=== PATIENT | female | born 1935 | race Caucasian/White ===

== ENCOUNTER 2016-07-19 12:36 | Inpatient (IN) | payer MEDICARE ==
--- NOTE | 2016-07-08 21:57 | HP ---
PREOPERATIVE HISTORY AND PHYSICAL: DATE OF OFFICE VISIT: 07/08/16 DATE OF SURGERY: 07/19/16 ATTENDING SURGEON: Stefany Bui MD PROCEDURE: Right total hip replacement. CHIEF COMPLAINT: Right hip pain. HISTORY OF PRESENT ILLNESS: Ms. Cotter is a 80-year-old female who presents in clinic with continued right hip pain. She has failed conservative measures and therefore has elected to undergo a right total hip replacement with Dr. Bui on 07/19/16. PAST MEDICAL HISTORY: High cholesterol, hypothyroidism, sleep apnea, hypertension, osteoarthritis in multiple joints, and GERD. PAST SURGICAL HISTORY: 1. Uterine suspension. 2. Left total hip replacement. MEDICATIONS: 1. Amoxicillin 500 mg 4 tabs 1 hour before dental work, invasive GI or procedures. 2. Omeprazole 20 mg 1 by mouth daily. 3. Levothyroxine sodium 88 mcg 1 by mouth every day. 4. Lisinopril 20 mg 1 by mouth daily. 5. Amlodipine besylate 5 mg 1 by mouth daily. 5. Vitamin D 1 by mouth daily. 6. Multivitamin 1 by mouth daily. 7. Aleve 500 mg as needed for pain. ALLERGIES: No known drug allergies. FAMILY HISTORY: Positive for heart disease and cancer. SOCIAL HISTORY: The patient lives with her . She is a former smoker and quit 50 years ago. She reports occasional alcohol use. She denies illegal drug use. REVIEW OF SYSTEMS: General: Negative for fever, chills, or night sweats. No known anesthesia problems. HEENT: Negative for headache, lightheadedness, or syncopal episodes. Integumentary: Negative for abrasions, lesions, or open wounds. Cardiothoracic: Positive for swelling in the left ankle. Negative for chest pain, palpitations, or edema. Positive for hypertension. Pulmonary: Negative for shortness of breath with exertion, chronic cough, or COPD. GI: Negative for nausea, vomiting, diarrhea, or constipation. Positive for GERD. : Negative for nocturia, urinary frequency, urinary urgency, history of UTIs, or kidney problems. Musculoskeletal: Positive for the current complaint. Neuro: Negative for paresthesias. Positive for numbness of the left hand due to carpal tunnel. Negative for history of seizure, stroke, or epilepsy. Endocrine: Negative for diabetes. Positive for hypothyroidism. Hematology: Positive for easy bruising. Negative for anemia, excessive bleeding, or history of DVT. Infectious Disease: Negative for MRSA, hep C, or HIV. PHYSICAL EXAMINATION GENERAL: A well-developed and well-nourished female, in no acute distress. VITAL SIGNS: Height 62, weight 169, pulse 82, blood pressure 157/93, BMI 30.9. HEENT: Normocephalic and atraumatic. PERRLA. Throat: Clear. NECK: Supple. PULMONARY: Lungs clear to auscultation bilaterally. No wheezing, rhonchi, or rales. CARDIOVASCULAR: Regular rate and rhythm. S1 and S2. No murmurs, gallops, and rubs. No edema. ABDOMEN: Positive bowel sounds, soft, nontender. MUSCULOSKELETAL: Right lower extremity, skin is intact. Pain with range of motion of the hip, 90 degrees of flexion. Pain in the groin, 0 degrees of internal rotation and 30 degrees of external rotation. No calf tenderness or swelling. +2 dorsalis pedis pulses. Sensation is intact to light touch distally. NEURO: Alert and oriented x3. Cranial nerves grossly intact. Sensation intact to light touch distally. DIAGNOSTIC STUDIES/LAB DATA: Multiple views of the right hip showed advanced arthritic disease in the right hip joint. IMPRESSION: Severe right hip osteoarthritis. PLAN: The patient is scheduled to undergo a right total hip replacement with Dr. Bui on 07/19/16. She will return to clinic in 10 to 14 days postop for followup and suture removal. A prescription for Percocet was e-prescribed to the patient's pharmacy for postoperative pain management. A prescription for Colace was sent for constipation and a script for Coumadin was sent for DVT prophylaxis. The patient has been cleared by her primary care physician. SHIMON LEMOS [id number]/[facility] #: [id number] [facility] CENTERIlene
[~2016-07-19 12:36] MED LIST: Buffered Lidocaine 1% SYR 3ML* 3 ML/SYR SYRINGE INTRADERM ONE; Famotidine TAB* 20 MG PO ONE; Gabapentin CAP(*) 300 MG PO ONE; Metoclopramide TAB* 10 MG PO ONE; celeCOXIB CAP* 200 MG PO ONE
[2016-07-19] MEDS ORDERED: celeCOXIB CAP* 100 MG ONE (13:03)
[2016-07-19] MEDS ORDERED: ceFAZolin 2 GM PREMIX (*) 2 GM/50 ML BAG IVPB ONE (13:04)
[2016-07-19] MEDS ORDERED: Buffered Lidocaine 1% SYR 3ML* 3 ML/SYR SYRINGE ONE (13:04)
[2016-07-19] MEDS ORDERED: Gabapentin CAP(*) 300 MG ONE (13:04)
[2016-07-19] MEDS ORDERED: Metoclopramide TAB* 10 MG ONE (13:04)
[2016-07-19] MEDS ORDERED: Famotidine TAB* 20 MG ONE (13:04)
[2016-07-19] MEDS ORDERED: Propofol* 10 MG/ML 20 ML BTL IV PUSH ONE (13:42)
[2016-07-19] MEDS ORDERED: Lidocaine 2% MPF* 2 ML VIAL ONE (13:42)
[2016-07-19] MEDS ORDERED: fentaNYL* 50 MCG/ML 5 ML VIAL (250 MCG VIAL) ONE (13:42)
[2016-07-19] MEDS ORDERED: Midazolam* 1 MG/ML 5 ML VIAL (5 MG) ONE (13:42)
[2016-07-19] MEDS ORDERED: KETAMINE HCL* 50 MG/ML 10 ML VIAL ONE (13:42)
[2016-07-19] MEDS ORDERED: Dexamethasone IV* 4 MG/ML 1 ML (4 MG) ONE (13:42)
[2016-07-19] MEDS ORDERED: Ketorolac INJ* 30 MG/ML 1 ML VIAL ONE (13:42)
[2016-07-19] MEDS ORDERED: Ondansetron INJ* 2 MG/ML VIAL ONE (13:42)
[2016-07-19] MEDS ORDERED: Cisatracurium* 2 MG/ML MDV 10 ML ONE (13:42)
[2016-07-19] MEDS ORDERED: Phenylephrine IV* 40 MCG/ML 10 ML SYRINGE ONE (14:56)
[2016-07-19] MEDS ORDERED: Bupivacaine 0.5% SDV PF* 30 ML VIAL ONE (14:59)
[2016-07-19] MEDS ORDERED: Ondansetron TAB* 4 MG PO PRN (15:32)
[2016-07-19] MEDS ORDERED: oxyCODONE TAB* 5 MG TAB PO PRN (15:32)
[2016-07-19] MEDS ORDERED: Magnesium Hydroxide LIQ* 30 ML UDC PO PRN (15:32)
[2016-07-19] MEDS ORDERED: Morphine INJ* 4 MG/ML 1 ML CARPUJECT IV PRN (15:32)
[2016-07-19] MEDS ORDERED: Bisacodyl SUPP* 10 MG SUPP PR PRN (15:32)
[2016-07-19] MEDS ORDERED: diPHENhydraMINE PO* 25 MG PO PRN (15:32)
[2016-07-19] MEDS ORDERED: fentaNYL* 50 MCG/ML 2 ML VIAL (100 MCG VIAL) IV PRN (15:48)
[2016-07-19] MEDS ORDERED: Ondansetron INJ* 2 MG/ML VIAL IV PRN (15:48)
[2016-07-19] MEDS ORDERED: HYDROmorphone INJ* 1 MG/ML CARPUJECT SYRINGE ONE ×2 (16:54→17:55)
[2016-07-19] MEDS ORDERED: Labetalol IV* 5 MG/ML 20 ML VIAL ONE (17:39)
[2016-07-19] MEDS: HYDROmorphone INJ* 1 MG/ML CARPUJECT SYRINGE IV PRN ×2 (17:56→18:09)
--- NOTE | 2016-07-19 18:34 | RAD ---
INDICATION: Right total hip arthroplasty TECHNIQUE: A single AP view radiograph of the right hip was obtained status post arthroplasty. FINDINGS: In the AP projection the right hip prosthesis is anatomically aligned. There is no periprosthetic fracture. Remaining visualized bones are intact. IMPRESSION: Anatomic alignment in the AP projection of recently placed right hip prosthesis.
[2016-07-19] MEDS ORDERED: fentaNYL* 50 MCG/ML 2 ML VIAL (100 MCG VIAL) ONE (18:35)
--- NOTE | 2016-07-19 19:37 | RAD ---
INDICATION: The patient is status post right total hip arthroplasty TECHNIQUE: An AP view of the pelvis and 2 views of the right hip were obtained. FINDINGS: In the AP view the bilateral hip prostheses are anatomically aligned. The right hip prosthesis is anatomically aligned in the AP and lateral view. There is no evidence of periprosthetic fracture. Remaining visualized bones are intact. IMPRESSION: Anatomically aligned hip prostheses as described above.
[2016-07-19] MEDS ORDERED: Warfarin TAB(*) 6 MG PO ONE (21:00)
[2016-07-19] MEDS: ceFAZolin 1 GM in Dextrose (*) 1 GM/50 ML BAG IVPB SCH (21:21)
[2016-07-19] MEDS: Docusate CAP* 100 MG PO SCH (21:21)
[2016-07-20] MEDS: ceFAZolin 1 GM in Dextrose (*) 1 GM/50 ML BAG IVPB SCH ×2 (02:33→08:13)
[2016-07-20] MEDS: Acetaminophen TAB* 325 MG PO PRN (02:33)
[2016-07-20 06:23] LABS: Hematocrit 34 % (35-47); Hemoglobin 11.4 g/dl (12.0-16.0)
[2016-07-20 06:38] LABS: BUN/Creatinine Ratio 13.8 (8-20); EGFR African American 89.2 (>60); EGFR Non-African American 69.4 (>60); Potassium 4.5 mmol/L (3.5-5.0)
--- NOTE | 2016-07-20 07:49 | PN ---
Progress Note - Progress Note SOAP: Subjective: Pt. reports no sob and min pain. She would like to be moved back to the orthopedic floor. Objective: RLE - thigh soft, tender. distally +df/pf, full sens lt, 2+ dp pulse. Vital Signs: Temp Pulse Resp BP Pulse Ox 98.8 F 82 17 127/62 97 07/20/16 04:32 07/20/16 06:00 07/20/16 06:00 07/20/16 06:00 07/20/16 06:00 Laboratory Results - last 24 hr 07/20/16 07/20/16 07/20/16 06:09 06:09 06:09 Hgb 11.4 L Hct 34 L INR (Anticoag Therapy) 1.01 Sodium 132 L Potassium 4.5 Chloride 99 L Carbon Dioxide 25 Anion Gap 8 BUN 11 Creatinine 0.80 Est GFR ( Amer) 89.2 Est GFR (Non-Af Amer) 69.4 BUN/Creatinine Ratio 13.8 Glucose 133 H Calcium 9.0 Assessment: 80 yo F pod 1 s/p RTHA Plan: No desats overnight, on 3 L nc o2. Bowles out this AM OK to remove abduction pillow while in bed awake Will consult Dr. Chen, her PCP. Appropriate to transfer to [facility] this AM Needs PT/OT.
[2016-07-20] MEDS: Vitamin THERAPEUTIC TAB PO SCH (08:13)
[2016-07-20] MEDS: Docusate CAP* 100 MG PO SCH ×2 (08:13→20:34)
[2016-07-20] MEDS: oxyCODONE/Acetamin 5/325 MG* TAB PO PRN ×3 (08:13→20:34)
--- NOTE | 2016-07-20 11:29 | OP ---
OPERATIVE REPORT: DATE OF OPERATION: 07/19/16. DATE OF : 39. ATTENDING SURGEON: Stefany Bui MD. RETAIL PHARMACY MERCHANDISER: SHIMON Garcia. ANESTHESIOLOGIST: Xu Roberto MD. ANESTHESIA: General. PRE-OP DIAGNOSIS: Severe end-stage degenerative osteoarthritis of the right hip joint. POST-OP DIAGNOSIS: Severe end-stage degenerative osteoarthritis of the right hip joint. OPERATIVE PROCEDURE: Right total hip arthroplasty with modifier for morbid obesity. COMPLICATIONS: None. ESTIMATED BLOOD LOSS: 200 mL. SPECIMEN: Femoral head and acetabular reaming sent to Pathology. HARDWARE USED: This is an uncemented [place] total hip hardware. For the acetabular cup, a Trident acetabular shell 48 mm. 120 mm screw was used. 36B Trident X3 0-degree polyethylene insert. For the stem, an Accolade TMZF, size 2.5, 127-degree neck. For the head, a Biolox delta ceramic V40 femoral head, 36 -2.5. BRIEF HISTORY/INDICATION: Ms. Cotter is a 80-year-old female with over a year of increasingly severe right hip pain. Radiographs confirmed asow-is-paks contact and severe end-stage arthritis of the right hip joint. She failed conservative treatment with antiinflammatories, physical therapy, pain medication and ambulatory assistive devices. Her pain became quite severe and she elected to proceed with right total hip arthroplasty. Informed consent was obtained from the patient. She understood the risks of the procedure included, but were not limited to bleeding, infection, damage to nearby structures, continued pain, need for further surgery, intraoperative fracture, nerve palsy, dislocation, leg length discrepancy, hardware failure or loosening, stroke, heart attack, blood clot, and . She wished to proceed. INTRAOPERATIVE FINDINGS: Intraoperatively, the patient was noted to have severe end-stage arthritis and with complete loss of cartilage along the acetabulum and femoral head. She did have significant osteopenia. Throughout the case, the patient's morbid obesity with subcutaneous fat layer of at least 10 cm in width did add significant time to the case, approximately 60 minutes or more. DESCRIPTION OF PROCEDURE: Ms. Cotter was identified in the preanesthesia unit. Her right lower extremity was marked as the correct operative site. Informed consent was signed and placed in the chart. The patient was taken to the operating room. The patient was placed under general anesthesia and a Bowles catheter was placed. She was placed in the left lateral decubitus position on the peg board and all bony prominences were well padded. The right lower extremity was prepped and draped in the usual sterile fashion. Preop time-out was made to correctly identify the patient's side and site. Appropriate perioperative antibiotics were given within 1 hour of incision. A 15- cm posterolateral skin incision was made with a skin knife. Electrocautery was used to dissect down through the subcutaneous fat, which was at least 10 cm in width. The patient had significant morbid obesity, which did add every 60 minutes to this case. The fascial layer was incised in line with the skin incision. A Charnley retractor was placed. The piriformis and conjoint tendons were identified. These were elevated off the posterolateral femur and tagged with two #5 Ethibond. Next, the electrocautery was used to make a standard posterolateral capsular flap. The capsular flap was also tagged with two #5 Ethibond. The hip was carefully dislocated. The femoral head had complete loss of cartilage. Lesser troch to center of the femoral head measured 45 mm. Oscillating saw was used to make the appropriate femoral neck cut and the femoral head was sent to Pathology. The femur was carefully retracted anteriorly. After appropriate placement of retractor, the acetabulum was visualized. Soft tissue was carefully removed from the cotyloid notch. Cartilage was completely degenerated. The acetabulum was sequentially reamed up to a size 47. The 47 reamer had good bleeding bone bed and stability. A 47 trial had good stability in anteversion/abduction angle. A size 48 Trident acetabular shell was chosen. This was impacted into the acetabulum without difficulty. Appropriate anteversion and abduction angle were noted. A 125 mm screw was placed in the superior posterior quadrant for extra stability. A 36 D Trident X3 0-degree was chosen for the insert. This was impacted into the acetabulum. The insert was checked for stability and noted to have some movement. Therefore, this insert was carefully removed with an osteotome. A new Trident X3 0- degree 36E insert was opened and soft tissue was cleared carefully around the acetabular rim. This new insert was impacted into the acetabulum and noted to be stable after rechecking. Attention was next turned to the femur. After appropriate placement of retractors, the proximal femur was visualized. Patient was noted to be extremely osteopenic. Canal finder was used to enter the proximal femur. The femur was sequentially broached up to a size 2.5, which had good stability and satisfactory anteversion. A 127 neck trial was inserted as well as a 36 -2.5 head trial. Lesser troch to the center of the femoral head measured 46 mm. The patient's hip was reduced and taken through a range of motion. The hip was stable in all positions with good soft tissue tension and approximate leg lengths. Patient's hip was carefully dislocated. All trials were carefully removed. Final implants with the TMZF Accolade stem size 2.5 with 127-degree neck. This was impacted into the femur without difficulty. There was good stability and appropriate anteversion. A 36 -2.5 Biolox delta ceramic femoral head was chosen. This was impacted onto the femoral neck without difficulty. The hip was reduced and taken through a range of motion. The hip was stable in all positions. The hip was copiously irrigated with sterile saline. Previously tagged tendons and capsule was reapproximated to the posterolateral femur through 2 trochanteric drill holes. The fascial layer was closed using interrupted #1 Vicryl. The subcutaneous tissues were closed in a layered fashion using 0 and 2 -0 Vicryls. Skin was closed using 3-0 Monocryl and Dermabond. Sterile Adaptic , 4x4s, and paper tape were used to cover the incision. The patient's anesthesia was reversed without difficulty. She was taken to the PACU in stable condition. Intended weightbearing will be weightbearing as tolerated with posterior hip precautions. Intended DVT prophylaxis will be Coumadin with a Lovenox bridge. [id number]/[facility] #: [id number] [facility]
[2016-07-20] MEDS ORDERED: Enoxaparin(*) 30 MG/0.3 ML SYR SUBCUT SCH (16:00)
[2016-07-20] MEDS ORDERED: Warfarin TAB(*) 4 MG PO ONE (17:00)
--- NOTE | 2016-07-21 00:46 | CONS ---
CONSULTATION REPORT: DATE OF CONSULTATION: 07/20/2016. REQUESTING PHYSICIAN: Dr. Bui. HISTORY OF PRESENT ILLNESS: Yi Cotter is a 80-year-old woman who I am asked to see for followup of hypoxemia, which occurred in the recovery room yesterday after she underwent a right total hip replacement. She had gotten to the PACU after the hip replacement. I do not have the details of that but she did desaturate in the recovery room. She was moved to the ICU. Since being in the ICU, her saturations have been normal and she is breathing well presently on room air. PAST MEDICAL HISTORY: Significant for the following medical problems. 1. Hypertension. 2. Osteoarthritis. 3. Hypothyroidism. 4. History of sleep apnea but she was unable to tolerate sleeping with CPAP. 5. History of venous insufficiency of the lower extremities. 6. History of heartburn. PAST SURGICAL HISTORY: Include: 1. Tonsillectomy in childhood. 2. Drainage of rectal abscesses in 1959. 3. D and C's x3. 4. Appendectomy and uterine suspension in 1963. 5. Left total hip arthroplasty, 11/10/15. CURRENT MEDICATIONS: 1. Lisinopril 20 mg daily. 2. Amlodipine 2.5 mg daily. 3. Omeprazole 20 mg daily. 4. Acetaminophen 325 mg two tables every 4 hours as needed for pain. 5. B12 at 1000 mcg daily. 6. Aleve 220 mg 2 tablets every day as needed for pain. 7. Synthroid 88 mcg daily. 8. Multivitamins 1 daily. 9. Vitamin D 1000 units every day. ALLERGIES: TETANUS TOXOID caused erythema. HABITS: Tobacco, none. EtOH, occasional. Caffeine, 2 to 3 cups of coffee/ soda per day. FAMILY HISTORY: Noncontributory. SOCIAL AND PERSONAL HISTORY: The patient is . She lives in her own home. She has an adult daughter who lives in [place]. REVIEW OF SYSTEMS: Otherwise remarkable for left hand tingling at night. She has right knee pain. PHYSICAL EXAM: She is a well-developed, well-nourished female in no acute distress. Vital Signs: From this morning, blood pressure 122/58, pulse 84, respirations 14, temperature 100.8, O2 sat 94% on room air. Skin is warm and dry. HEENT: Atraumatic, normocephalic. Full EOMs. Mouth: Pharynx unremarkable. Neck supple. Chest clear. Heart, normal S1, S2 without murmurs , gallops, or rubs. Abdomen is nontender. No masses or organomegaly. Bowel sounds are active. Extremities show no calf tenderness. No edema. LABORATORY DATA: Done this morning, H and H 11.. This shows a drop in her hemoglobin from 13.7 and hematocrit had been 42 on her preop testing on . Sodium 132, potassium 4.5, chloride 95, CO2 is 25, BUN/creatinine 11/0.8, glucose 133. IMPRESSION: The patient likely had desaturation in the recovery room yesterday due to having received fentanyl. She seems to now be fine, off oxygen. She is being seen in the intensive care unit. She seems stable and able to transfer to the surgical floor. I will be available should any further problems arise. Otherwise at this point, I think she is stable to be transferred. [id number]/[facility] #: [id number] [facility]
[2016-07-21] MEDS: oxyCODONE/Acetamin 5/325 MG* TAB PO PRN ×4 (03:47→20:57)
[2016-07-21] MEDS: Levothyroxine TAB* 88 MCG TAB PO SCH (05:55)
[2016-07-21 06:59] LABS: Hematocrit 28 % (35-47); Hemoglobin 9.4 g/dl (12.0-16.0)
--- NOTE | 2016-07-21 07:39 | PN ---
Progress Note - Progress Note SOAP: Subjective: Pt. reports pain controlled, 02 increased to 2 L overnight. Objective: RLE - dressing changed, inc c/d/i. distally nvi. Vital Signs: Temp Pulse Resp BP Pulse Ox 98.3 F 83 16 116/68 99 07/21/16 03:39 07/21/16 03:39 07/21/16 05:47 07/21/16 03:39 07/21/16 03:39 Laboratory Results - last 24 hr 07/21/16 07/21/16 06:52 06:52 Hgb 9.4 L Hct 28 L INR (Anticoag Therapy) 1.94 H Assessment: 80 yo F pod 2 s/p RTHA Plan: Plan to attempt O2 wean today. PT/OT - wbat d/c plan is home with vns. 2mg coumadin tonedward, d/c lovenox
[2016-07-21] MEDS: Lisinopril TAB* 10 MG PO SCH (09:26)
[2016-07-21] MEDS: amLODIPine TAB* 5 MG PO SCH ×2 (09:26→09:30)
[2016-07-21] MEDS: Docusate CAP* 100 MG PO SCH ×2 (09:26→20:56)
[2016-07-21] MEDS: Vitamin THERAPEUTIC TAB PO SCH (09:29)
[2016-07-21] MEDS ORDERED: Warfarin TAB(*) 2 MG PO ONE (17:00)
[2016-07-22] MEDS: oxyCODONE/Acetamin 5/325 MG* TAB PO PRN ×3 (00:57→22:27)
[2016-07-22] MEDS: Levothyroxine TAB* 88 MCG TAB PO SCH (06:06)
[2016-07-22 07:33] LABS: Hematocrit 27 % (35-47); Hemoglobin 8.9 g/dl (12.0-16.0)
[2016-07-22] MEDS: Vitamin THERAPEUTIC TAB PO SCH (08:04)
[2016-07-22] MEDS: Acetaminophen TAB* 325 MG PO PRN ×2 (08:06→12:40)
[2016-07-22] MEDS: Docusate CAP* 100 MG PO SCH ×2 (08:07→22:26)
[2016-07-22] MEDS: amLODIPine TAB* 5 MG PO SCH (08:09)
--- NOTE | 2016-07-22 08:15 | PN ---
Progress Note - Progress Note SOAP: Subjective: [80 y/o female s/p R YAMILETH 07/20/2016. Patient reports feeling better, has questions for Dr. Bui. Initially refusing to work with PT< however did cooperate and did well during my visit ] Objective: []General- Well appearing, NAD. MSK- neg homans sign, + moderate edema Right thigh extending slightly to right calf, no warmth, minimal tenderness. PT 2+ b/l, + equal dorsiflexion, plantarflexion b/l, sensation grossly intact to light touch b/l LE's ] Vital Signs Temp 97.6 F 07/22/16 04:32 Pulse 77 07/22/16 04:39 Resp 16 07/22/16 08:07 BP 101/51 07/22/16 04:39 Pulse Ox 98 07/22/16 04:39 Intake & Output 07/21/16 07/22/16 07/22/16 18:59 06:59 18:59 Intake Total 1160 820 Output Total 500 620 Balance 660 200 Intake: Oral 1160 820 Output: Urine 500 620 Other: # Bowel Movements 0 Active Medications Generic Name Dose Route Start Last Admin Trade Name Freq PRN Reason Stop Dose Admin Acetaminophen 650 mg 07/19/16 15:32 07/22/16 08:06 Tylenol Tab* PO 325 mg Q4H PRN Administration pain or temp Amlodipine Besylate 2.5 mg 07/21/16 09:00 07/22/16 08:09 Norvasc Tab* PO Not Given QAM GASTON Bisacodyl 10 mg 07/19/16 15:32 Dulcolax Supp* LA DAILY PRN constipation Diphenhydramine HCl 25 mg 07/19/16 15:32 Benadryl Po* PO Q6H PRN itching Docusate Sodium 100 mg 07/19/16 21:00 07/22/16 08:07 Colace Cap* PO 100 mg BID GASTON Administration Lactated Ringer's 1,000 mls @ 100 mls/hr 07/19/16 16:00 07/19/16 21:21 Lactated Ringers 1000 Ml Bag* IV 100 mls/hr PER RATE GASTON Administration Levothyroxine Sodium 88 mcg 07/21/16 06:00 07/22/16 06:06 Synthroid Tab* PO 88 mcg DAILY@0600 GASTON Administration Lisinopril 20 mg 07/21/16 09:00 07/21/16 09:26 Prinivil Tab* PO 20 mg QAM GASTON Administration Magnesium Hydroxide 30 ml 07/19/16 15:32 Milk Of Magnesia Liq* PO Q6H PRN constipation Morphine Sulfate 4 mg 07/19/16 15:32 Morphine Inj (Syringe)* IV Q2H PRN PAIN - UNRELIEVED Multivitamins 1 tab 07/20/16 09:00 07/21/16 09:29 Theragran Tab* PO 1 tab DAILY GASTON Administration Ondansetron HCl 4 mg 07/19/16 15:32 Zofran Tab* PO Q6H PRN NAUSEA Oxycodone HCl 10 mg 07/19/16 15:32 Roxycodone Tab* PO Q4H PRN PAIN - UNCONTROLLED Oxycodone/Acetaminophen 1 tab 07/19/16 15:32 07/22/16 06:07 Percocet 5/325 Tab* PO 1 tab Q3H PRN Administration PAIN - MODERATE Oxycodone/Acetaminophen 2 tab 07/19/16 15:32 07/22/16 00:57 Percocet 5/325 Tab* PO 2 tab Q3H PRN Administration PAIN - SEVERE Warfarin Sodium 4 mg 07/22/16 17:00 Coumadin Tab(*) PO 07/22/16 17:01 ONCE@1700 ONE Protocol Laboratory Results - last 24 hr 07/22/16 07/22/16 06:50 06:50 Hgb 8.9 L Hct 27 L INR (Anticoag Therapy) 1.89 H Assessment: [80 y/o female s/p R YAMILETH 07/20/2016. ] Plan: [- DVT prophylaxis- Coumadin 4mg tonight, continue lovenox. - Continue PT/ OT - Discharge planning for D/C tomorrow likely ]
[2016-07-22] MEDS: Lisinopril TAB* 10 MG PO SCH (09:52)
[2016-07-22] MEDS ORDERED: Warfarin TAB(*) 4 MG PO ONE (17:00)
[2016-07-23] MEDS: Levothyroxine TAB* 88 MCG TAB PO SCH (05:41)
[2016-07-23] MEDS: oxyCODONE/Acetamin 5/325 MG* TAB PO PRN ×2 (07:43→13:37)
[2016-07-23] MEDS: Vitamin THERAPEUTIC TAB PO SCH (08:15)
[2016-07-23] MEDS: amLODIPine TAB* 5 MG PO SCH (08:16)
[2016-07-23] MEDS: Docusate CAP* 100 MG PO SCH (08:16)
[2016-07-23] MEDS: Lisinopril TAB* 10 MG PO SCH (08:17)
[2016-07-23 09:01] LABS: Hematocrit 30 % (35-47); Hemoglobin 10.1 g/dl (12.0-16.0)
--- NOTE | 2016-07-23 10:04 | PN ---
Progress Note - Progress Note SOAP: Subjective: [Pt doing well. Feels ready to go home. No complaints. Pain managed with po meds] Objective: [A and O x 3, NAD R hip dressing changed. Scant SS drainage on dressing. No active drainage. Mild jennifer-incisional erythema Calf soft - small area of TTP distally but very superficial - muscular in nature , Distal gross motor and NV status intact Laboratory Results - last 24 hr 07/23/16 07/23/16 08:22 08:22 Hgb 10.1 L Hct 30 L INR (Anticoag Therapy) 1.74 H Vital Signs: Temp Pulse Resp BP Pulse Ox 99.1 F 86 16 142/85 97 07/23/16 07:46 07/23/16 07:46 07/23/16 08:00 07/23/16 07:46 07/23/16 07:46 ] Assessment: [80 yo female s/p R YAMILETH POD #4 doing well] Plan: [D/C patient home Coumadin - 4 mg today, 2 mg tomorrow WBAT R LE Percocet for pain F/U with Dr. Bui in 2 weeks]
[2016-07-23 12:26] VITALS: BP 147/77
--- NOTE | 2016-07-25 11:57 | DS ---
DISCHARGE SUMMARY: DATE OF ADMISSION: 07/19/16 DATE OF DISCHARGE: 07/23/16 ADMITTING PHYSICIAN: Dr. Bui. ADMITTING DIAGNOSES: 1. Right hip osteoarthritis. 2. Hypertension. 3. Hypercholesterolemia. 4. Hypothyroidism. DISCHARGE DIAGNOSES: 1. Status post right total hip arthroplasty. 2. Hypertension. 3. Hypercholesterolemia. 4. Hypothyroidism. PROCEDURE: Right total hip arthroplasty. CONSULTANTS: Physical Therapy, Occupational Therapy, Medicine. BRIEF HISTORY: Ms. Cotter is a 80-year-old female with severe degenerative osteoarthritis of her right hip, who failed conservative treatment measures and elected to undergo a right total hip arthroplasty on 07/19/[address] Bui. HOSPITAL COURSE: Ms. Cotter was was admitted to [facility] on . She underwent an uncomplicated right total hip arthroplasty. Postoperatively, she recovered on the short stay surgical unit. Her Bowles catheter was removed on postoperative day 1 and she was able to urinate on her own. She advanced to regular diet without difficulty. Her pain was well controlled with Percocet. She did have a bowel movement during her stay in the hospital and she was restarted on home medications. Her vital signs and labs remained stable. She was able to bear weight as tolerated on the right lower extremity. She advanced appropriately with physical therapy and occupational therapy. Her DVT prophylaxis was bridged with Lovenox and Coumadin until she reached therapeutic INR range. By postop day #4, she was orthopedically and medically stable for discharge home with services. PHYSICAL EXAMINATION: General: On examination, the patient was noted to be calm and cooperative, in no acute distress. She is alert and oriented x3. Vital signs on the day of discharge, temperature 97.6 Fahrenheit, pulse rate 87 , O2 sat 95% on room air, blood pressure 125/73. Extremities: Examination of the right lower extremity demonstrates dressing overlying the right hip which is clean, dry, and intact. Minimal erythema jennifer-incisionally. Her thigh is mildly swollen but compressible. Distally, she has +2 dorsalis pedis pulse. Gross motor and neurovascular functions are intact distally. LABORATORY DATA: On the day of discharge, hemoglobin 10.1, hematocrit 30. INR 1.74. RADIOGRAPHS: Postoperative radiographs of the right hip demonstrate right total hip arthroplasty with satisfactory prosthesis placement and no acute bony abnormality. DISCHARGE MEDICATIONS: 1. Amoxicillin 500 mg 4 tabs one hour before dental work, invasive GI or procedures. 2. Omeprazole 20 mg 1 tab daily. 3. Levothyroxine sodium 88 mcg daily. 4. Lisinopril 20 mg 1 tab daily. 5. Amlodipine besylate 5 mg daily. 6. Vitamin D daily. 7. Multivitamins daily. 8. Aleve 500 mg p.r.n. pain which the patient will hold until she is no longer taking Coumadin. 9. Coumadin 2 mg tablet, the patient will take 4 mg on the day of discharge and 2 mg the following day, Monday, and then as directed. 10. Percocet 5/325 one to two tabs p.o. p.r.n. pain. 11. Colace 100 mg up to 3 times a day p.r.n. constipation. CONDITION ON DISCHARGE: Stable. DISCHARGE INSTRUCTIONS: Ms. Cotter is a 80-year-old female postoperative day 4 status post a right total hip arthroplasty, which was uncomplicated. She is orthopedically and medically stable to be discharged home with services. She has stable vital signs and labs. She has restarted home medications. She will take 4 mg of Coumadin on Monday and 2 mg of Coumadin on Monday. She will have her INR rechecked on Monday. She will have INR draws on Mondays and with visiting nurse services. She will remain weightbearing as tolerated on the right lower extremity and observe posterior hip precautions. She will have home physical therapy twice a day. She will take Percocet for pain control and Colace up to 3 times a day for constipation. She will follow up in the office with Dr. Bui in 10 to 14 days for incision check. She was instructed to call Dr. Bui or go immediately to the emergency room should she develop any new fevers, chills or incision pain, redness, or drainage. She was instructed to go immediately to the ER should she develop chest pain or shortness of breath. SHIMON RAMIREZ [id number]/[facility] #: [id number] [facility]ITAL[facility]
== END 2016-07-23 14:00 | disposition home health service (06) | DRG 470 ==
LOC: AA 12:36 → ICU 20:27 → SSU 07-20 11:17
PROVIDERS: ADMIT Orthopaedic Surgery Adult Reconstructive Orthopaedic Surgery; ATTEND Orthopaedic Surgery Adult Reconstructive Orthopaedic Surgery
PROC: 0SR904A Replacement of Right Hip Joint with Ceramic on Polyethylene Synthetic Substitute, Uncemented, Open Approach (ICD-10-PCS; principal; 2016-07-19 16:00)
DX: M16.11 Unilateral primary osteoarthritis, right hip (principal); E66.01 Morbid (severe) obesity due to excess calories; I10 Essential (primary) hypertension; Z87.891 Personal history of nicotine dependence; Z88.7 Allergy status to serum and vaccine; E03.9 Hypothyroidism, unspecified; M25.561 Pain in right knee; Z96.642 Presence of left artificial hip joint; M85.80 Other specified disorders of bone density and structure, unspecified site; G47.33 Obstructive sleep apnea (adult) (pediatric); K21.9 Gastro-esophageal reflux disease without esophagitis; E78.00 Pure hypercholesterolemia, unspecified; Z82.49 Family history of ischemic heart disease and other diseases of the circulatory system; Z80.9 Family history of malignant neoplasm, unspecified; Z68.30 Body mass index [BMI] 30.0-30.9, adult
CPT/HCPCS: 36415; 72170; 80048; 85014; 85018; 85610; 88304; 88311; 94760; A9270-GY; C1713; C1776; J0690; J1100; J1170; J1650; J1885; J2250; J2270; J2405; J2704; J3010

== ENCOUNTER → 2016-10-18 06:18 | Day surgery (SDC) | payer MEDICARE ==
--- NOTE | 2016-10-12 15:09 | HP ---
HISTORY AND PHYSICAL: DATE OF ADMISSION/SURGERY: 10/18/16 PROCEDURE: Left carpal tunnel release. CHIEF COMPLAINT: Left wrist pain. HISTORY OF PRESENT ILLNESS: Ms. Cotter is a 81-year-old female with complaints of left wrist pain, numbness and tingling of the left hand. She has elected to proceed with a left carpal tunnel release which is scheduled for 10/18/[address] Bui. PAST MEDICAL HISTORY: High cholesterol, hypertension, hypothyroidism, sleep apnea and GERD. PAST SURGICAL HISTORY: Bilateral total hip arthroplasties and uterine suspension. CURRENT MEDICATIONS: 1. Omeprazole. 2. Levothyroxine. 3. Lisinopril. 4. Amlodipine. 5. Vitamin D. 6. Multivitamins. ALLERGIES: No known drug allergies. FAMILY HISTORY: Heart disease and cancer. SOCIAL HISTORY: She is a 81-year-old female. She lives with her . She is a former smoker, she quit approximately 50 years ago. Occasional alcohol use. She denies use of illicit drugs. REVIEW OF SYSTEMS: A complete 14-point review of systems was reviewed with the patient, all negative and noncontributory. PHYSICAL EXAMINATION GENERAL: She is well developed, well nourished, no acute distress. VITAL SIGNS: She stands 5 feet 1 inch tall, weighs 170 pounds. Her blood pressure is 142/88. Her heart rate is 88. HEENT: Normocephalic, atraumatic. NECK: Supple. No palpable lymph nodes. Trachea is midline. PULMONARY: Lungs are clear to auscultation bilaterally. CARDIO: Regular rate and rhythm. Strong S1 and S2. ABDOMEN: Soft, nontender, nondistended. MUSCULOSKELETAL: Left upper extremity skin is intact. She has full range of motion of the left wrist. She has positive Tinel's, positive Phalen's at the left wrist. She has good capillary refill, 2+ distal radial pulses. 5/5 bilateral hand inserter promotional item. There is no thenar or hypothenar atrophy. NEUROLOGIC: She is alert and oriented x3. Cranial nerves II through XII are intact. STUDIES: An EMG nerve conduction study from 08/18/16 shows severe left carpal tunnel syndrome. ASSESSMENT AND PLAN: Ms. Cotter is a 81-year-old female with left carpal tunnel syndrome. She has elected to proceed with left carpal tunnel release which is scheduled for 10/18/[address] Bui. She will follow with Dr. Bui in clinic 10 to 14 days after the surgery. SHIMON BAILEY [id number]/[facility] #: [id number] MTDIlene
[~2016-10-18 06:18] MED LIST changes: -Buffered Lidocaine 1% SYR 3ML* 3 ML/SYR SYRINGE INTRADERM ONE; +Buffered Lidocaine 1% SYRIN* 3 ML/SYR SYRINGE INTRADERM ONE; +Bupivacaine 0.5% SDV PF* 30 ML VIAL ONE; +Dexamethasone IV* 4 MG/ML 1 ML (4 MG) IV SLOW PU ONE; +Dexamethasone IV* 4 MG/ML 1 ML (4 MG) ONE; +Famotidine IV* 10 MG/ML 2 ML (20 mg) IV ONE; +Famotidine IV* 10 MG/ML 2 ML (20 mg) ONE; -Famotidine TAB* 20 MG PO ONE; -Gabapentin CAP(*) 300 MG PO ONE; +HYDROcodone/ACETAMIN 5-325 MG* 1 TAB PO PRN; +Lidocaine 1% INJ* 10 MG/ML 30 ML SDV ONE; +Lidocaine 2% PF* 5 ML VIAL ONE; -Metoclopramide TAB* 10 MG PO ONE; +Midazolam* 1 MG/ML 2 ML VIAL (2 MG) ONE; +Ondansetron INJ* 2 MG/ML VIAL ONE; +PROCHLORPERAZINE INJ 5 MG/ML 2 ML VIAL IV PRN; +Propofol* 10 MG/ML 20 ML BTL IV PUSH ONE; +ceFAZolin 2 GM PREMIX(*) 2 GM/50 ML BAG IVPB ONE; -celeCOXIB CAP* 200 MG PO ONE; +fentaNYL* 50 MCG/ML 2 ML VIAL (100 MCG VIAL) IV PRN; +fentaNYL* 50 MCG/ML 2 ML VIAL (100 MCG VIAL) ONE
[2016-10-18 09:35] VITALS: BP 127/75
--- NOTE | 2016-10-19 17:28 | OP ---
DATE OF OPERATION: 10/18/16 [facility] DATE OF : 39 SURGEON: Stefany Bui MD PHP MYSQL DEVELOPER: SHIMON Garcia ANESTHESIOLOGIST: Natalie Toney MD ANESTHESIA: Low MAC with local 0.5% Marcaine. PRE-OP DIAGNOSIS: Left median nerve compression at the wrist or left carpal tunnel syndrome. POST-OP DIAGNOSIS: Left median nerve compression at the wrist or left carpal tunnel syndrome. OPERATIVE PROCEDURE: Left open carpal tunnel release. INDICATIONS: Ms. Cotter is a 81-year-old female with years of increasingly severe left wrist pain, numbness, and tingling. An EMG/nerve conduction study confirmed severe carpal tunnel syndrome at the left wrist. She elected to undergo open left carpal tunnel release due to weakness, pain, and numbness. Informed consent was obtained from the patient. She understood the risks of surgery included, but were not limited to, bleeding, infection, damage to nearby structures, continued pain, need for further surgery, stroke, heart attack, blood clot, and . She wished to proceed. TOURNIQUET TIME: 8 minutes. COMPLICATIONS: None. ESTIMATED BLOOD LOSS: Less than 50 cc. SPECIMEN: None. INTRAOPERATIVE FINDINGS: Intraoperatively, the patient was noted to have a thick transverse carpal ligament with obvious compression at the median nerve. There was significant amount of synovitis around the median nerve. No mass was noted. DESCRIPTION OF PROCEDURE: Ms. Cotter was identified in the preanesthesia unit. Her left upper extremity was marked as the correct operative side. Informed consent was signed and placed in the chart. She was taken to the operating room. Low MAC anesthesia was given, 0.5% Marcaine was used locally and placed in the carpal tunnel. The left upper extremity was prepped and draped in the usual sterile fashion. Preop time-out was made to correctly identify the patient's side and site. Appropriate perioperative antibiotics were given within 1 hour of incision. Tourniquet was inflated and total tourniquet time for this procedure was 8 minutes. A 2.5-cm incision was made just ulnar to the thenar crease in line with the ring finger. Tenotomies were used to dissect through the subcutaneous fat. Palmar fascia was encountered and incised in line with the skin incision. After appropriate placement of retractors, the transverse carpal ligament was visible. This was carefully released using a 15 blade. Proximally, this was released until there was no further compression of the median nerve. Distally, this was released to the palmar fat near the deep arch. The median nerve had obvious compression, which was chronic. No visible masses. There was significant amount of synovitis around the nerve, which was not disrupted. The wound was copiously irrigated with sterile saline and tourniquet was turned down at 8 minutes. Electrocautery was used to obtain meticulous hemostasis. The incision was closed using interrupted 3- 0 nylon sutures in a vertical mattress fashion. Sterile Xeroform, 4x4s, and Webril were used to cover the incision. A volar plaster splint was applied with an Curt wrap over it. The patient's anesthesia was reversed without difficulty. She was taken to the PACU in stable condition. Intended weightbearing will be limited weightbearing in left upper extremity with elevation, ice. She will follow up in 3 days for a dressing change. [id number]/[facility] #: [id number] LUCAS
== END | disposition home or self-care (01) ==
LOC: OR 06:18
PROVIDERS: ATTEND Orthopaedic Surgery Adult Reconstructive Orthopaedic Surgery
DX: G56.02 Carpal tunnel syndrome, left upper limb (principal); Z87.891 Personal history of nicotine dependence; I10 Essential (primary) hypertension; E78.5 Hyperlipidemia, unspecified; E03.9 Hypothyroidism, unspecified; K21.9 Gastro-esophageal reflux disease without esophagitis; Z96.649 Presence of unspecified artificial hip joint
CPT/HCPCS: 36415; 85610; J0690; J1100; J2001; J2250; J2405; J2704; J3010